=== PATIENT | male | born 1995 | race Caucasian/White ===

== ENCOUNTER 2024-10-07 18:32 | Emergency (ER) | payer SELFPAY ==
[~2024-10-07] VITALS: Ht 182.9 cm; Wt 84.0 kg
[2024-10-07] MEDS ORDERED: SULFAMETHOXAZOLE W/TRIMETHOPRI 1 COMBO TAB PO STA (19:11)
[2024-10-07] MEDS ORDERED: traMADol HCL 50 MG/TAB PO ONE (19:15)
[2024-10-07] MEDS ORDERED: MUPIROCIN (PSEUDOMONAS FLUORES 22 GM/TUBE TUBE TOP ONE (19:20)
[2024-10-07] MEDS ORDERED: BACTRIM DS1 TAB PO (19:35)
[2024-10-07] MEDS ORDERED: MUPIROCIN (PSEUDOMONAS FLUORES 22 GM/TUBE TUBE ONE (20:21)
[2024-10-07 21:00] VITALS: BP 142/84
== END 2024-10-07 21:00 | disposition home or self-care (01) | DRG 603 ==
LOC: ED 18:32
PROC: 0H96XZZ Drainage of Back Skin, External Approach (ICD-10-PCS; principal; 2024-10-07)
DX: L02.212 Cutaneous abscess of back [any part, except buttock and flank] (principal); B95.61 Methicillin susceptible Staphylococcus aureus infection as the cause of diseases classified elsewhere